=== PATIENT | female | born 1945 | race Caucasian/White ===

== ENCOUNTER 2021-11-05 19:34 | Inpatient (IN) | payer MEDICARE, OTHER ==
[~2021-11-05] VITALS: Ht 162.6 cm; Wt 81.6 kg
[2021-11-05 20:45] LABS: RED BLOOD COUNT 6.19 M/UL (4.00-5.10); WHITE BLOOD COUNT 13.8 K/UL (4.5-11.0)
[2021-11-06 05:56] LABS: HEMOGLOBIN 15.1 gm/dl (12.3-15.3); WHITE BLOOD COUNT 13.3 K/UL (4.5-11.0)
[2021-11-06 05:57] LABS: RED BLOOD COUNT 5.37 M/UL (4.00-5.10)
[2021-11-06] MEDS ORDERED: EXELON1 EACH TOP (12:02)
[2021-11-06] MEDS ORDERED: ALPRAZOLAM1 MG PO (12:02)
[2021-11-06] MEDS ORDERED: ZINC OXIDE60 GM TOP (12:03)
[2021-11-06] MEDS ORDERED: ONDANSETRON HCL4 MG PO (12:03)
[2021-11-06] MEDS ORDERED: HYDROCODON-ACE1 EAC6 PO (12:03)
[2021-11-06] MEDS ORDERED: VITAMIN D31250 MCG PO (12:04)
[2021-11-06] MEDS ORDERED: CRESTOR 10 MG T10 MG PO (12:04)
[2021-11-06] MEDS ORDERED: CLOPIDOGREL75 MG PO (12:04)
[2021-11-06] MEDS ORDERED: VOLTAREN ARTHRI20 GM TOP (12:05)
[2021-11-06] MEDS ORDERED: GLIMEPIRIDE4 MG PO (12:05)
[2021-11-06] MEDS ORDERED: INSULIN AS100 UNIT/2 SQ (12:06)
[2021-11-06] MEDS ORDERED: ZESTRIL5 MG PO (12:06)
[2021-11-06] MEDS ORDERED: LEVOTHYROXINE50 MCG PO (12:06)
[2021-11-06] MEDS ORDERED: LORATADINE10 MG PO (12:07)
[2021-11-06] MEDS ORDERED: PROAIR HFA8.5 GM INH (12:07)
[2021-11-06] MEDS ORDERED: METOPROLOL TART50 MG PO (12:07)
[2021-11-06] MEDS ORDERED: TRULICITY0.75 MG/0. SQ (12:08)
[2021-11-06] MEDS ORDERED: FUROSEMIDE20 MG PO (12:08)
[2021-11-06] MEDS ORDERED: POTASSIUM CHLO10 ME2 PO (12:09)
[2021-11-06] MEDS ORDERED: TRESIBA100 UNIT/1 SQ (12:13)
[2021-11-07 06:59] LABS: HEMOGLOBIN 15.3 gm/dl (12.3-15.3); RED BLOOD COUNT 5.61 M/UL (4.00-5.10)
[2021-11-07 07:01] LABS: WHITE BLOOD COUNT 8.4 K/UL (4.5-11.0)
[2021-11-08 06:26] LABS: HEMOGLOBIN 15.5 gm/dl (12.3-15.3); RED BLOOD COUNT 5.42 M/UL (4.00-5.10); WHITE BLOOD COUNT 8.9 K/UL (4.5-11.0)
[2021-11-09 03:37] LABS: HEMOGLOBIN 15.8 gm/dl (12.3-15.3); RED BLOOD COUNT 5.46 M/UL (4.00-5.10); WHITE BLOOD COUNT 9.5 K/UL (4.5-11.0)
[2021-11-09] MEDS ORDERED: DOXYCYCLINE HY100 M2 PO (09:40)
[2021-11-09] MEDS ORDERED: SODIUM BICARBO650 M1 PO (10:11)
[2021-11-09] MEDS ORDERED: DECADRON6 MG PO (10:11)
--- NOTE | 2021-11-09 13:12 | NUR ---
REPORT CALLED TO [facility]. RN ALSO CONTACTED FAMILY MEMBER AMARJIT FOR PATIENT TRANSPORT AT DISCHARGE. AMARJIT STATED SHE WAS HAVING HER TIRES ROTATED THEN SHE WOULD PICK PATIENT UP FROM HOSPITAL. RN NOTIFIED PATIENT.
== END 2021-11-09 16:56 | disposition home health service (06) | DRG 871 ==
LOC: ER1 19:34 → CDU 11-06 00:18 → M/S 11-07 03:46
PROVIDERS: Internal Medicine; Student in an Organized Health Care Education/Training Program; ADMIT Internal Medicine
PROC: 3E0333Z Introduction of Anti-inflammatory into Peripheral Vein, Percutaneous Approach (ICD-10-PCS; principal; 2021-11-06)
PROC: 8E0ZXY6 Isolation (ICD-10-PCS; 2021-11-06)
DX: A41.89 Other specified sepsis (principal); U07.1 COVID-19; J12.82 Pneumonia due to coronavirus disease 2019; G93.41 Metabolic encephalopathy; N39.0 Urinary tract infection, site not specified; N17.9 Acute kidney failure, unspecified; R65.20 Severe sepsis without septic shock; N28.9 Disorder of kidney and ureter, unspecified; F41.9 Anxiety disorder, unspecified; E86.0 Dehydration; E27.9 Disorder of adrenal gland, unspecified; E78.5 Hyperlipidemia, unspecified; A48.8 Other specified bacterial diseases; E11.9 Type 2 diabetes mellitus without complications; I10 Essential (primary) hypertension; F32.A Depression, unspecified; E66.9 Obesity, unspecified; R53.81 Other malaise; Z90.49 Acquired absence of other specified parts of digestive tract; Z80.1 Family history of malignant neoplasm of trachea, bronchus and lung; Z87.891 Personal history of nicotine dependence; Z79.4 Long term (current) use of insulin; Z99.81 Dependence on supplemental oxygen; Z68.30 Body mass index [BMI] 30.0-30.9, adult
CPT/HCPCS: 36415; 36600; 70450; 71045; 71250; 73502; 80048; 80053; 81001; 82550; 82553; 82570; 82728; 82803; 82962; 83605; 83735; 83880; 84100; 84300; 84484; 85025; 85610; 85652; 86140; 87086; 89050; 93005; 96372; 96374; 96375; 97162; 97165; 97530; 97535; 99285; J0696; J1100; J1630; J1644; J3370; J3486; U0002

== ENCOUNTER 2021-11-18 17:50 | Emergency (ER) | payer MEDICARE ==
[~2021-11-18 17:50] MED LIST: ALPRAZOLAM1 MG PO; CLOPIDOGREL75 MG PO; CRESTOR 10 MG T10 MG PO; DECADRON6 MG PO; DOXYCYCLINE HY100 M2 PO; EXELON1 EACH TOP; FUROSEMIDE20 MG PO; GLIMEPIRIDE4 MG PO; HYDROCODON-ACE1 EAC6 PO; INSULIN AS100 UNIT/2 SQ; LEVOTHYROXINE50 MCG PO; LORATADINE10 MG PO; METOPROLOL TART50 MG PO; ONDANSETRON HCL4 MG PO; POTASSIUM CHLO10 ME2 PO; PROAIR HFA8.5 GM INH; SODIUM BICARBO650 M1 PO; TRESIBA100 UNIT/1 SQ; TRULICITY0.75 MG/0. SQ; VITAMIN D31250 MCG PO; VOLTAREN ARTHRI20 GM TOP; ZESTRIL5 MG PO; ZINC OXIDE60 GM TOP
[2021-11-18 19:21] LABS: HEMOGLOBIN 16.7 gm/dl (12.3-15.3); RED BLOOD COUNT 5.75 M/UL (4.00-5.10)
[2021-11-20] MEDS ORDERED: GLIMEPIRIDE4 MG PO (10:37)
== END 2021-11-20 19:11 ==
LOC: ER1 17:50
PROVIDERS: Physician Assistant
DX: R26.81 Unsteadiness on feet (principal); I12.9 Hypertensive chronic kidney disease with stage 1 through stage 4 chronic kidney disease, or unspecified chronic kidney disease; N18.9 Chronic kidney disease, unspecified; U09.9 Post COVID-19 condition, unspecified; E10.22 Type 1 diabetes mellitus with diabetic chronic kidney disease; Z72.3 Lack of physical exercise; W19.XXXA Unspecified fall, initial encounter
CPT/HCPCS: 71045; 72128; 72131; 73552; 80053; 81001; 82140; 82550; 82553; 82962; 83874; 84484; 85025; 86140; 87086; 93005; 96372; 97110; 97161; 97166; 97530-GP-CQ; 99285; J3486